=== PATIENT | female | born 1990 | race Caucasian/White ===

== ENCOUNTER 2017-03-10 13:24 | Emergency (ER) | payer OTHER ==
[2017-03-10 13:38] VITALS: BP 121/80; PULSE 108; RESP 16; O2SAT 99
--- NOTE | 2017-03-10 14:08 | ED PDOC ---
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 Past Medical History Reviewed: Historical Data, Nursing Documentation, Vital Signs Vital Signs: Last Vital Signs Temp 98.0 F 03/10/17 13:35 Pulse 108 H 03/10/17 13:35 Resp 16 03/10/17 13:35 BP 121/80 03/10/17 13:35 Pulse Ox 99 03/10/17 14:08 - Medical History Other PMH: ITP childhood - Surgical History Surgical History: No Surg Hx - Family History Family History: States: No Known Family Hx - Living Arrangements Living Arrangements: With Family - Social History Current smoker - smoking cessation education provided: No Alcohol: None Drugs: Denies - Home Medications Home Medications: Ambulatory Orders Medication Instructions Recorded Guaifenesin/Pseudoephedrne HCl 1 tab PO DAILY PRN #30 ter 03/10/17 [Mucinex D 600 mg-60 mg] Promethazine HCl/Codeine 5 ml PO HS #80 ml 03/10/17 [Prometh-Codein 6.25-10 mg/5 ml] - Allergies Allergies/Adverse Reactions: Allergies Allergy/AdvReac Type Severity Reaction Status Date / Time aspirin Allergy ITCHING Verified 03/10/17 13:34 ibuprofen [From Advil] Allergy RASH Verified 03/10/17 13:34 Review of Systems ROS Statement: Except As Marked, All Systems Reviewed And Found Negative Constitutional: Positive for: Fever ENT: Positive for: Nose Congestion Respiratory: Positive for: Cough Physical Exam - Reviewed Nursing Documentation Reviewed: Yes Vital Signs Reviewed: Yes - Physical Exam Appears: Positive for: Well, Non-toxic, No Acute Distress Head Exam: Positive for: ATRAUMATIC, NORMAL INSPECTION, NORMOCEPHALIC Skin: Positive for: Normal Color, Warm, DRY Eye Exam: Positive for: EOMI, Normal appearance, PERRL ENT: Positive for: Normal ENT Inspection Neck: Positive for: Normal, Painless ROM Cardiovascular/Chest: Positive for: Regular Rate, Rhythm Respiratory: Positive for: CNT, Normal Breath Sounds Gastrointestinal/Abdominal: Positive for: Normal Exam, Bowel Sounds, Soft Back: Positive for: Normal Inspection Extremity: Positive for: Normal ROM Neurologic/Psych: Positive for: Alert, Oriented - ECG O2 Sat by Pulse Oximetry: 99 Medical Decision Making Medical Decision Making: CXR: NAd, as read by ANDREZ Disposition - Clinical Impression Clinical Impression: Upper respiratory infection - Patient ED Disposition Is Patient to be Admitted: No - Disposition Disposition: Routine/Home Disposition Time: 15:10 Condition: STABLE Prescriptions: Guaifenesin/Pseudoephedrne HCl [Mucinex D 600 mg-60 mg] 1 tab PO DAILY PRN #30 ter PRN Reason: congestion Promethazine HCl/Codeine [Prometh-Codein 6.25-10 mg/5 ml] 5 ml PO HS #80 ml Instructions: Upper Respiratory Infection (ED) Forms: [employer] (Hungarian)
--- NOTE | 2017-03-10 14:52 | RAD ---
HISTORY: fever cough x 5 days COMPARISON: No prior. TECHNIQUE: Chest PA and lateral FINDINGS: LUNGS: No active pulmonary disease. PLEURA: No significant pleural effusion identified. No pneumothorax apparent. CARDIOVASCULAR: Normal. OSSEOUS STRUCTURES: No significant abnormalities. VISUALIZED UPPER ABDOMEN: Normal. OTHER FINDINGS: None. IMPRESSION: No active disease. No preliminary report provided by emergency department personnel.
[2017-03-10 15:20] VITALS: TEMP 97.6
== END 2017-03-10 15:27 | disposition home or self-care (01) ==
LOC: H.ER 13:24
DX: J06.9 Acute upper respiratory infection, unspecified (principal)

== ENCOUNTER 2017-04-20 21:18 | Emergency (ER) | payer OTHER ==
[2017-04-20 21:39] VITALS: RESP 16; O2SAT 100
[2017-04-20] MEDS ORDERED: Lactated Ringer's 1,000 ML IV STA (22:03)
[2017-04-20] MEDS ORDERED: Dextrose 5%/Lactated Ringer's 1,000 ML IV SCH (22:15)
--- NOTE | 2017-04-20 22:27 | ED PDOC ---
HPI: CCC, URI, Sore Throat Time Seen by Provider: 04/20/17 21:46 Chief Complaint (Nursing): Flu-like Symptoms Chief Complaint (Provider): cough History Per: Patient History/Exam Limitations: no limitations Associated Symptoms: Fever, Chills, Sore Throat, Cough, Sputum, Sinus Drainage, Myalgias, Nasal Congestion, Nausea. denies: Neck Pain, Vomiting, Diarrhea Additional Complaint(s): Pt reports cough that initially start about a month ago. Seen in this ER and had CXR and discharged with URI diagnosis. Cough persisted with only brief episodes of relief. Worsened again 4 days ago and presented to [facility] and prescribed augmentin for possible throat infection. However not improving and presents here because of persistent symptoms. PMD [facility] Past Medical History Reviewed: Historical Data, Nursing Documentation, Vital Signs Vital Signs: Last Vital Signs Temp 97.9 F 04/21/17 02:19 Pulse 78 04/21/17 02:19 Resp 16 04/21/17 02:19 BP 128/78 04/21/17 02:19 Pulse Ox 100 04/21/17 02:19 - Medical History PMH: No Chronic Diseases - Surgical History Surgical History: No Surg Hx - Family History Family History: States: No Known Family Hx - Social History Current smoker - smoking cessation education provided: No - Home Medications Home Medications: Ambulatory Orders Medication Instructions Recorded Guaifenesin/Pseudoephedrne HCl 1 tab PO DAILY PRN #30 ter 03/10/17 [Mucinex D 600 mg-60 mg] Promethazine HCl/Codeine 5 ml PO HS #80 ml 03/10/17 [Prometh-Codein 6.25-10 mg/5 ml] Promethazine HCl/Codeine 10 ml PO Q6 PRN #120 ml 04/21/17 [Prometh-Codein 6.25-10 mg/5 ml] levoFLOXacin [Levaquin] 750 mg PO DAILY #5 tab 04/21/17 - Allergies Allergies/Adverse Reactions: Allergies Allergy/AdvReac Type Severity Reaction Status Date / Time aspirin Allergy ITCHING Verified 04/20/17 21:35 ibuprofen [From Advil] Allergy RASH Verified 04/20/17 21:35 Review of Systems ROS Statement: Except As Marked, All Systems Reviewed And Found Negative (and as per HPI) Constitutional: Positive for: Fever, Chills, Weakness, Malaise ENT: Positive for: Nose Discharge, Nose Congestion, Throat Pain Respiratory: Positive for: Cough, Sputum Neurological: Positive for: Headache. Negative for: Weakness, Numbness Physical Exam - Reviewed Nursing Documentation Reviewed: Yes Vital Signs Reviewed: Yes - Physical Exam Appears: Positive for: Non-toxic, No Acute Distress (but tired appearing) Head Exam: Positive for: ATRAUMATIC, NORMOCEPHALIC Skin: Positive for: Warm, Dry Eye Exam: Positive for: EOMI, PERRL ENT: Positive for: Pharynx Is (clear), Sinus Pain/Drainage, Nasal Congestion. Negative for: Pharyngeal Erythema, Tonsillar Exudate, Tonsillar Swelling Neck: Positive for: Painless ROM, Supple Cardiovascular/Chest: Positive for: Chest Non Tender, Tachycardia. Negative for : Murmur Respiratory: Positive for: Normal Breath Sounds. Negative for: Accessory Muscle Use, Rales, Wheezing, Respiratory Distress Gastrointestinal/Abdominal: Positive for: Bowel Sounds, Soft. Negative for: Tenderness, Mass, Distended, Guarding, Rebound Back: Positive for: Normal Inspection. Negative for: Vertebral Tenderness Extremity: Positive for: Normal ROM. Negative for: Deformity Lymphatic: Negative for: Adenopathy Neurologic/Psych: Positive for: Alert. Negative for: Motor/Sensory Deficits - Laboratory Results Result Diagrams: 04/20/17 22:45 04/20/17 22:45 Interpretation Of Abn Labs: Leukocytosis - ECG O2 Sat by Pulse Oximetry: 100 Pulse Ox Interpretation: Normal - Radiology X-Ray: Interpreted by Pa X-Ray Interpretation: Infiltrates - Progress Re-evaluation Time: 00:00 Condition: Improved (Pt feels better post IVF and tylenol. DW pt findings and stressed importance of follow up. Advised to RTER immediately for worsening symptoms or no improvement in 48 hours.) Disposition - Clinical Impression Clinical Impression: Pneumonia - Disposition Referrals: [facility] [Outside] [facility] [Outside] - 04/22/17 Disposition: Routine/Home Disposition Time: 00:00 Condition: IMPROVED Prescriptions: levoFLOXacin [Levaquin] 750 mg PO DAILY #5 tab Promethazine HCl/Codeine [Prometh-Codein 6.25-10 mg/5 ml] 10 ml PO Q6 PRN #120 ml PRN Reason: SEVERE COUGH ONLY Instructions: Pneumonia (ED) Forms: [facility] ED School/Work Excuse
[2017-04-20 22:50] LABS: VENOUS BLOOD GAS BASE EXCESS 0.6 mmol/L (0.0-2.0); VENOUS BLOOD GAS PCO2 52 mmHg (40-60); VENOUS BLOOD PH 7.33 (7.32-7.43)
[2017-04-20 22:54] LABS: BASO # 0.1 K/uL (0.0-0.2); BASO % 0.4 % (0.0-2.0); EOS # 0.3 K/uL (0.0-0.7); EOS % 1.6 % (0.0-4.0); HEMATOCRIT 40.3 % (34.0-47.0); LYMPH # 2.8 K/uL (1.0-4.3); MEAN CELL VOLUME 89.4 fl (81.0-99.0); MEAN CORPUSCULAR HEMOGLOBIN 29.6 pg (27.0-31.0); MEAN CORPUSCULAR HGB CONC 33.1 g/dL (33.0-37.0); MEAN PLATELET VOLUME 8.6 fl (7.2-11.7); MONO # 1.9 K/uL (0.0-0.8); MONO % 11.9 % (0.0-10.0); NEUT # 11.2 K/uL (1.8-7.0); NEUT % 69.1 % (50.0-75.0); RED CELL DISTRIBUTION WIDTH 12.6 % (11.5-14.5); WHITE BLOOD COUNT 16.3 K/uL (4.8-10.8)
[2017-04-20 23:04] LABS: ALKALINE PHOSPHATASE 102 U/L (38-126); ALT/SGPT 29 U/L (9-52); AST/SGOT 25 U/L (14-36); BILIRUBIN,TOTAL 0.4 mg/dl (0.2-1.3); BLOOD UREA NITROGEN 9 mg/dl (7-17); CALCIUM 9.2 mg/dL (8.4-10.2); CARBON DIOXIDE 25 mmol/L (22-30); CHLORIDE 103 mmol/L (98-107); GFR AFRICAN-AMERICAN > 60; GLUCOSE,RANDOM 111 mg/dL (65-105); POTASSIUM 4.3 MMOL/L (3.6-5.0); SODIUM 139 mmol/l (132-148); TOTAL PROTEIN 8.4 G/DL (6.3-8.2)
--- NOTE | 2017-04-21 00:07 | ED PDOC ---
- Laboratory Results Result Diagrams: 04/20/17 22:45 04/20/17 22:45 - ECG O2 Sat by Pulse Oximetry: 100 Medical Decision Making Medical Decision Makin Patient signed out to me from Tasha Macias MD pending re-evaluation. Scribe Attestation: Documented by Naomi Pelayo acting as a scribe for Jennyfer Hayes MD. Scribe Attestation: All medical record entries made by the Scribe were at my direction and personally dictated by me. I have reviewed the chart and agree that the record accurately reflects my personal performance of the history, physical exam, medical decision making, and the department course for this patient. I have also personally directed, reviewed, and agree with the discharge instructions and disposition. Disposition - Disposition Forms: [employer] (Telugu)
[2017-04-21] MEDS ORDERED: levoFLOXacin 750 mg in D5W 150 ML BAG IVPB STA (00:15)
[2017-04-21] MEDS ORDERED: levoFLOXacin 750 mg in D5W 750 MG/150 ML BAG IVPB ONE (00:24)
[2017-04-21 02:20] VITALS: BP 128/78; PULSE 78; TEMP 97.9
--- NOTE | 2017-04-21 08:04 | RAD ---
HISTORY: Cough, fever. COMPARISON: 03/10/2017. TECHNIQUE: Chest PA and lateral FINDINGS: LUNGS: Right upper lobe infiltrate likely acute pneumonia, finding not seen previously. Left lower lobe infiltrate finding better appreciated on the lateral view. PLEURA: No significant pleural effusion identified. No pneumothorax apparent. CARDIOVASCULAR: Normal. OSSEOUS STRUCTURES: No significant abnormalities. VISUALIZED UPPER ABDOMEN: Normal. OTHER FINDINGS: None. IMPRESSION: Right upper lobe infiltrate/ pneumonia. This represents a new finding compared to the previous study. Left lower lobe infiltrate/pneumonia. A new finding compared to the prior study. Per institutional protocol findings have been routed to the PA folder for review No preliminary report provided by emergency department personnel.
== END 2017-04-21 02:26 | disposition home or self-care (01) ==
LOC: H.ER 21:18
DX: J18.9 Pneumonia, unspecified organism (principal)
CPT/HCPCS: 71020; 80053; 81025; 82803; 85025; 86308; 87040; 87070; 87430; 87804; 99282; J7120

== ENCOUNTER 2017-08-19 13:33 | Emergency (ER) | payer OTHER ==
[2017-08-19 14:12] VITALS: RESP 18; TEMP 99
[2017-08-19] MEDS ORDERED: Sodium Chloride 0.9% 1,000 ML IV STA (16:03)
--- NOTE | 2017-08-19 16:21 | RAD ---
HISTORY: Cough COMPARISON: 04/21/2017 TECHNIQUE: Chest PA and lateral FINDINGS: LUNGS: No active pulmonary disease. PLEURA: No significant pleural effusion identified. No pneumothorax apparent. CARDIOVASCULAR: Normal. OSSEOUS STRUCTURES: No significant abnormalities. VISUALIZED UPPER ABDOMEN: Normal. OTHER FINDINGS: None. IMPRESSION: No active disease. No significant interval change compared to the prior examination(s).
[2017-08-19 16:39] LABS: BASO # 0.1 K/uL (0.0-0.2); BASO % 0.6 % (0.0-2.0); EOS # 0.2 K/uL (0.0-0.7); EOS % 2.6 % (0.0-4.0); HEMOGLOBIN 13.9 g/dL (12.0-16.0); LYMPH # 1.7 K/uL (1.0-4.3); LYMPH % 19.5 % (20.0-40.0); MEAN CELL VOLUME 89.2 fl (81.0-99.0); MEAN CORPUSCULAR HEMOGLOBIN 29.8 pg (27.0-31.0); MEAN CORPUSCULAR HGB CONC 33.5 g/dL (33.0-37.0); MEAN PLATELET VOLUME 8.7 fl (7.2-11.7); MONO # 1.3 K/uL (0.0-0.8); MONO % 15.3 % (0.0-10.0); NEUT # 5.4 K/uL (1.8-7.0); RBC 4.65 Mil/uL (3.80-5.20); RED CELL DISTRIBUTION WIDTH 13.2 % (11.5-14.5); WHITE BLOOD COUNT 8.8 K/uL (4.8-10.8)
[2017-08-19 18:24] LABS: ALBUMIN 4.4 g/dL (3.5-5.0); ALT/SGPT 27 U/L (9-52); AST/SGOT 28 U/L (14-36); BLOOD UREA NITROGEN 10 mg/dl (7-17); CALCIUM 9.3 mg/dL (8.4-10.2); GFR AFRICAN-AMERICAN > 60; GFR NON-AFRICAN AMERICAN > 60
--- NOTE | 2017-08-19 18:51 | ED PDOC ---
HPI: General Adult Time Seen by Provider: 08/19/17 16:01 Chief Complaint (Nursing): Flu-like Symptoms Chief Complaint (Provider): cough malaise History Per: Patient History/Exam Limitations: no limitations Onset/Duration Of Symptoms: Days (4), Gradual Current Symptoms Are (Timing): Still Present Additional Complaint(s): 26yo female c/o flu like symptoms of cough , malaise, fatigue, sore throat. Denies syncope, rash, vomiting or diarrhea. Was told she had pneumonia in the fall 2016, cough persisted for several months, improved now has returned. She denies smoking or weight loss or hemoptysis. Past Medical History Reviewed: Historical Data, Nursing Documentation, Vital Signs Vital Signs: Last Vital Signs Temp 99 F 08/19/17 14:09 Pulse 100 H 08/19/17 14:09 Resp 18 08/19/17 14:09 BP 119/85 08/19/17 14:09 Pulse Ox 98 08/19/17 14:09 - Medical History PMH: Pneumonia - Surgical History Surgical History: No Surg Hx - Social History Current smoker - smoking cessation education provided: No - Home Medications Home Medications: Ambulatory Orders Medication Instructions Recorded Guaifenesin/Pseudoephedrne HCl 1 tab PO DAILY PRN #30 ter 03/10/17 [Mucinex D 600 mg-60 mg] Promethazine HCl/Codeine 5 ml PO HS #80 ml 03/10/17 [Prometh-Codein 6.25-10 mg/5 ml] Promethazine HCl/Codeine 10 ml PO Q6 PRN #120 ml 04/21/17 [Prometh-Codein 6.25-10 mg/5 ml] levoFLOXacin [Levaquin] 750 mg PO DAILY #5 tab 04/21/17 Albuterol HFA [Ventolin HFA 90 1 - 2 puff IH Q4 PRN #1 inhaler 08/19/17 mcg/actuation (8 g)] Azithromycin [Zithromax] 250 mg PO DAILY #6 tab 08/19/17 - Allergies Allergies/Adverse Reactions: Allergies Allergy/AdvReac Type Severity Reaction Status Date / Time aspirin Allergy ITCHING Verified 08/19/17 14:09 ibuprofen [From Advil] Allergy RASH Verified 08/19/17 14:09 Review of Systems Constitutional: Positive for: Chills, Weakness, Malaise ENT: Positive for: Throat Pain Cardiovascular: Negative for: Chest Pain, Palpitations Respiratory: Positive for: Cough, Sputum. Negative for: Shortness of Breath Gastrointestinal: Negative for: Nausea, Abdominal Pain Genitourinary Female: Negative for: Dysuria, Frequency Musculoskeletal: Negative for: Neck Pain, Shoulder Pain Skin: Negative for: Rash, Lesions Neurological: Negative for: Weakness, Numbness Psych: Negative for: Anxiety Physical Exam - Reviewed Nursing Documentation Reviewed: Yes Vital Signs Reviewed: Yes - Physical Exam Appears: Positive for: Well, Non-toxic, No Acute Distress Head Exam: Positive for: ATRAUMATIC, NORMAL INSPECTION, NORMOCEPHALIC Skin: Positive for: Normal Color, Warm, DRY Eye Exam: Positive for: EOMI, Normal appearance, PERRL ENT: Positive for: Normal ENT Inspection Neck: Positive for: Normal, Painless ROM Cardiovascular/Chest: Positive for: Regular Rate, Rhythm Respiratory: Positive for: Normal Breath Sounds, Other (+cough). Negative for: Decreased Breath Sounds, Rhonchi, Wheezing, Respiratory Distress Gastrointestinal/Abdominal: Positive for: Normal Exam, Bowel Sounds, Soft Back: Positive for: Normal Inspection Extremity: Positive for: Normal ROM Neurologic/Psych: Positive for: Alert, Oriented - Laboratory Results Result Diagrams: 08/19/17 16:35 08/19/17 17:35 - ECG O2 Sat by Pulse Oximetry: 98 Pulse Ox Interpretation: Normal - Radiology X-Ray: Read By Radiologist X-Ray Interpretation: No Acute Disease Medical Decision Making Medical Decision Making: labs reviewed and unremarkable Flu neg Rx azithro, albuterol, rec tylenol OTC, followup pulmonary given persistent now chronic intermittent cough. Disposition - Clinical Impression Clinical Impression: Influenza-like symptoms - Patient ED Disposition Is Patient to be Admitted: No Counseled Patient/Family Regarding: Studies Performed, Diagnosis, Need For Followup, Rx Given - Disposition Referrals: [facility] [Outside] Disposition: Routine/Home Disposition Time: 18:01 Condition: STABLE Additional Instructions: Followup with your doctor for further testing into your symptoms. Take medications as directed. Prescriptions: Albuterol HFA [Ventolin HFA 90 mcg/actuation (8 g)] 1 - 2 puff IH Q4 PRN #1 inhaler PRN Reason: Shortness Of Breath Azithromycin [Zithromax] 250 mg PO DAILY #6 tab Instructions: Chronic Cough (ED), Weakness (ED) Forms: [employer] (Occitan)
[2017-08-19 18:55] VITALS: BP 115/68; PULSE 78; O2SAT 99
== END 2017-08-19 18:55 | disposition home or self-care (01) ==
LOC: H.ER 13:33
DX: R05 Cough (principal); J02.9 Acute pharyngitis, unspecified; M62.81 Muscle weakness (generalized)
CPT/HCPCS: 71046; 80053; 81025; 84484; 85025; 87804; 96360; 99283; J7040

== ENCOUNTER 2017-10-31 16:00 | Emergency (ER) | payer OTHER ==
[2017-10-31] MEDS ORDERED: Sodium Chloride 0.9% 1,000 ML IV STA ×2 (16:56→18:38)
--- NOTE | 2017-10-31 17:19 | ED PDOC ---
History of Present Illness History of Present Illness: Chino Osullivan is a 26 year old female with a past medical history of pneumonia, who was brought to the ER by EMS for evaluation of fever preceded by runny nose and sinus pressure, onset a couple days ago. She reports having mild cough and severe body aches, which prompted her Ed visit today. Patient states that she Tylenol at noon today and Claritin this morning. She denies any nausea , vomiting, diarrhea, or urinary symptoms. PMD: [facility] HPI: Influenza Time Seen by Provider: 10/31/17 16:50 Chief Complaint: Flu-like Symptoms Chief Complaint (Provider): Flu-like Symptoms History Per: Patient Exam Limitations: no limitations Onset/Duration Of Symptoms: Days Symptoms include: fever, bodyaches, cough. denies: vomiting, diarrhea Past Medical History Reviewed: Historical Data, Nursing Documentation, Vital Signs Vital Signs: Last Vital Signs Temp 101.0 F H 10/31/17 17:12 Pulse 134 H 10/31/17 16:10 Resp 16 10/31/17 16:10 BP 128/76 10/31/17 16:10 Pulse Ox 100 10/31/17 16:10 - Medical History PMH: Pneumonia - Surgical History Surgical History: No Surg Hx - Family History Family History: States: Unknown Family Hx - Home Medications Home Medications: Ambulatory Orders Medication Instructions Recorded Guaifenesin/Pseudoephedrne HCl 1 tab PO DAILY PRN #30 ter 03/10/17 [Mucinex D 600 mg-60 mg] Promethazine HCl/Codeine 5 ml PO HS #80 ml 03/10/17 [Prometh-Codein 6.25-10 mg/5 ml] Promethazine HCl/Codeine 10 ml PO Q6 PRN #120 ml 04/21/17 [Prometh-Codein 6.25-10 mg/5 ml] levoFLOXacin [Levaquin] 750 mg PO DAILY #5 tab 04/21/17 Albuterol HFA [Ventolin HFA 90 1 - 2 puff IH Q4 PRN #1 inhaler 08/19/17 mcg/actuation (8 g)] Azithromycin [Zithromax] 250 mg PO DAILY #6 tab 08/19/17 - Allergies Allergies/Adverse Reactions: Allergies Allergy/AdvReac Type Severity Reaction Status Date / Time aspirin Allergy ITCHING Verified 08/19/17 14:09 ibuprofen [From Advil] Allergy RASH Verified 08/19/17 14:09 Review of Systems ROS Statement: Except As Marked, All Systems Reviewed And Found Negative Constitutional: Positive for: Fever ENT: Positive for: Other (sinus pressure) Respiratory: Positive for: Cough Gastrointestinal: Negative for: Nausea, Vomiting, Diarrhea Genitourinary Female: Negative for: Other (urinary symptoms) Physical Exam - Reviewed Nursing Documentation Reviewed: Yes Vital Signs Reviewed: Yes - Physical Exam Appears: Positive for: Well, Non-toxic, No Acute Distress Head Exam: Positive for: ATRAUMATIC, NORMAL INSPECTION, NORMOCEPHALIC Skin: Positive for: Normal Color, Warm, Dry Eye Exam: Positive for: Normal appearance ENT: Positive for: Normal ENT Inspection Neck: Positive for: Normal Cardiovascular/Chest: Positive for: Regular Rate, Rhythm. Negative for: Murmur Respiratory: Positive for: Normal Breath Sounds Gastrointestinal/Abdominal: Positive for: Normal Exam. Negative for: Bowel Sounds, Soft, Tenderness Extremity: Positive for: Normal ROM. Negative for: Deformity, Swelling Neurologic/Psych: Positive for: Alert, Oriented. Negative for: Motor/Sensory Deficits Medical Decision Making Medical Decision Making: Time: 16:56 Plan: --Venous Blood Gas Shock Panel --CMP --CBC --Chest X-Ray --IV Fluids --Tylenol 975 mg PO --Influenza A B Scribe Attestation: Documented by Veronica Dunne, acting as a scribe for Casi La PA-C Provider Scribe Attestation: All medical record entries made by the Scribe were at my direction and personally dictated by me. I have reviewed the chart and agree that the record accurately reflects my personal performance of the history, physical exam, medical decision making, and the department course for this patient. I have also personally directed, reviewed, and agree with the discharge instructions and disposition. - Laboratory Results Result Diagrams: 10/31/17 17:43 10/31/17 17:43 - ECG O2 Sat by Pulse Oximetry: 100 Disposition - Clinical Impression Clinical Impression: Influenza-like symptoms - Patient ED Disposition Is Patient to be Admitted: No Counseled Patient/Family Regarding: Diagnosis, Need For Followup - Disposition Disposition: Routine/Home Disposition Time: 20:23 Condition: STABLE Additional Instructions: Lots of fluids. Follow-up with PMD. Tylenol for fever. Blood cultures pending Instructions: Viral Syndrome (DC) Forms: [employer] (Lithuanian)
[2017-10-31 17:49] LABS: BASO % 0.3 % (0.0-2.0); EOS % 0.1 % (0.0-4.0); HEMOGLOBIN 13.9 g/dL (12.0-16.0); LYMPH # 1.6 K/uL (1.0-4.3); LYMPH % 8.9 % (20.0-40.0); MEAN CELL VOLUME 88.8 fl (81.0-99.0); MEAN CORPUSCULAR HEMOGLOBIN 30.2 pg (27.0-31.0); MEAN CORPUSCULAR HGB CONC 34.1 g/dL (33.0-37.0); MEAN PLATELET VOLUME 9.2 fl (7.2-11.7); MONO # 1.5 K/uL (0.0-0.8); MONO % 8.5 % (0.0-10.0); NEUT # 14.8 K/uL (1.8-7.0); NEUT % 82.2 % (50.0-75.0); PLATELET COUNT 278 K/uL (130-400); RBC 4.58 Mil/uL (3.80-5.20); WHITE BLOOD COUNT 18.1 K/uL (4.8-10.8)
--- NOTE | 2017-10-31 18:03 | RAD ---
HISTORY: Cough, fever COMPARISON: 08/19/2017. TECHNIQUE: Chest PA and lateral FINDINGS: LUNGS: No active pulmonary disease. PLEURA: No significant pleural effusion identified. No pneumothorax apparent. CARDIOVASCULAR: Normal. OSSEOUS STRUCTURES: No significant abnormalities. VISUALIZED UPPER ABDOMEN: Normal. OTHER FINDINGS: None. IMPRESSION: No active disease. No significant interval change compared to the prior examination(s).
[2017-10-31 18:06] LABS: ALBUMIN 4.2 g/dL (3.5-5.0); ALT/SGPT 38 U/L (9-52); AST/SGOT 23 U/L (14-36); BLOOD UREA NITROGEN 9 mg/dl (7-17); CALCIUM 9.5 mg/dL (8.4-10.2); GFR AFRICAN-AMERICAN > 60; GFR NON-AFRICAN AMERICAN > 60
[2017-10-31 18:09] VITALS: RESP 18
[2017-10-31 18:22] LABS: VENOUS BLOOD GAS PCO2 29 mmHg (40-60); VENOUS BLOOD GAS PO2 36 mm/Hg (30-55); VENOUS BLOOD PH 7.51 (7.32-7.43)
[2017-10-31 18:27] LABS: SPERM URINE RARE /hpf; SQUAMOUS EPITHIAL 3 /hpf (0-5); URINE BACTERIA OCC (<OCC); URINE BILIRUBIN NEGATIVE (NEGATIVE); URINE BLOOD SMALL (NEGATIVE); URINE CLARITY SLIGHTY-CLOUDY (Clear); URINE COLOR YELLOW (YELLOW); URINE GLUCOSE (UA) NEG (Normal); URINE LEUKOCYTE ESTERASE NEG Leu/uL (Negative); URINE PROTEIN NEGATIVE (NEGATIVE); URINE UROBILINOGEN 0.2-1.0 mg/dL (0.2-1.0)
[2017-10-31 18:58] LABS: BANDS 2 % (0-2); HYPOCHROMIC SLIGHT; LYMPHOCYTE 10 % (20-50); MONOCYTE 6 % (0-10); NEUTROPHIL 82 % (42-75); PLATELET ESTIMATE NORMAL (NORMAL); TOTAL CELLS COUNTED 100
[2017-10-31 21:21] VITALS: BP 106/57; PULSE 83; TEMP 98.4; O2SAT 99
== END 2017-10-31 21:29 | disposition home or self-care (01) ==
LOC: H.ER 16:00
DX: J11.1 Influenza due to unidentified influenza virus with other respiratory manifestations (principal); Z88.6 Allergy status to analgesic agent
CPT/HCPCS: 71046; 80053; 81003; 81025; 82803; 85025; 87040; 87086; 87804; 96360; 96361; 99283; J7040

== ENCOUNTER 2018-08-11 18:03 | Emergency (ER) | payer SELFPAY ==
[2018-08-11 18:35] VITALS: BP 124/76; PULSE 73; RESP 16; TEMP 98.2
[2018-08-11 18:37] VITALS: O2SAT 98
[2018-08-11] MEDS ORDERED: DiphenhydrAMINE 50 mg/ml Inj IVP STA (18:50)
[2018-08-11] MEDS ORDERED: DiphenhydrAMINE 50 mg/ml Inj ONE (18:59)
[2018-08-11] MEDS: Sodium Chloride 0.9% 1,000 ML IV SCH ×2 (19:03→20:13)
--- NOTE | 2018-08-11 19:03 | ED PDOC ---
HPI: Neurologic - General Time Seen by Provider: 08/11/18 18:41 Chief Complaint (Nursing): Headache Chief Complaint (Provider): headache, dizziness and migraines Source: patient Exam Limitations: no limitations - History of Present Illness Timing/Duration: waxing and waning Severity: none Allergies/Adverse Reactions: Allergies aspirin Allergy (Verified 08/11/18 18:31) ITCHING ibuprofen [From Advil] Allergy (Verified 08/11/18 18:31) RASH Home Medications: Ambulatory Orders Guaifenesin/Pseudoephedrne HCl [Mucinex D 600 mg-60 mg] 1 tab PO DAILY PRN #30 ter 03/10/17 Promethazine HCl/Codeine [Prometh-Codein 6.25-10 mg/5 ml] 5 ml PO HS #80 ml 03/10/17 Promethazine HCl/Codeine [Prometh-Codein 6.25-10 mg/5 ml] 10 ml PO Q6 PRN #120 ml 04/21/17 levoFLOXacin [Levaquin] 750 mg PO DAILY #5 tab 04/21/17 RX: Albuterol HFA [Ventolin HFA 90 mcg/actuation (8 g)] 1 - 2 puff IH Q4 PRN #1 inhaler 08/19/17 RX: Azithromycin [Zithromax] 250 mg PO DAILY #6 tab 08/19/17 Sumatriptan Succinate [Imitrex] 1 tab PO PRN PRN #12 tablet 08/11/18 Additional Complaint(s): 27 y/o female presents to the ED for an evaluation of headache, dizziness and migraines onset Friday evening. The headache is intermittent on the right side associated with light sensitivity and fever. Currently, patient states she is unable to chew food on the right side. Otherwise, she denies ear pain, nausea, diarrhea or cough. PMD: no family provider Past Medical History Reviewed: Historical Data, Nursing Documentation, Vital Signs Vital Signs: Last Vital Signs Temp 98.2 F 08/11/18 18:31 Pulse 73 08/11/18 18:31 Resp 16 08/11/18 18:31 BP 124/76 08/11/18 18:31 Pulse Ox 98 08/11/18 18:31 - Medical History PMH: Pneumonia - Family History Family History: States: Unknown Family Hx - Home Medications Home Medications: Ambulatory Orders Medication Instructions Recorded Guaifenesin/Pseudoephedrne HCl 1 tab PO DAILY PRN #30 ter 03/10/17 [Mucinex D 600 mg-60 mg] Promethazine HCl/Codeine 5 ml PO HS #80 ml 03/10/17 [Prometh-Codein 6.25-10 mg/5 ml] Promethazine HCl/Codeine 10 ml PO Q6 PRN #120 ml 04/21/17 [Prometh-Codein 6.25-10 mg/5 ml] levoFLOXacin [Levaquin] 750 mg PO DAILY #5 tab 04/21/17 RX: Albuterol HFA [Ventolin HFA 90 1 - 2 puff IH Q4 PRN #1 inhaler 08/19/17 mcg/actuation (8 g)] RX: Azithromycin [Zithromax] 250 mg PO DAILY #6 tab 08/19/17 Sumatriptan Succinate [Imitrex] 1 tab PO PRN PRN #12 tablet 08/11/18 - Allergies Allergies/Adverse Reactions: Allergies Allergy/AdvReac Type Severity Reaction Status Date / Time aspirin Allergy ITCHING Verified 08/11/18 18:31 ibuprofen [From Advil] Allergy RASH Verified 08/11/18 18:31 Review of Systems ROS Statement: Except As Marked, All Systems Reviewed And Found Negative Constitutional: Positive for: Fever. Negative for: Chills ENT: Negative for: Ear Pain Respiratory: Negative for: Cough Gastrointestinal: Negative for: Nausea, Vomiting Neurological: Positive for: Headache, Dizziness, Other (migraines). Negative for: Weakness, Numbness Physical Exam - Reviewed Nursing Documentation Reviewed: Yes Vital Signs Reviewed: Yes - Physical Exam Appears: Positive for: Non-toxic, No Acute Distress Head Exam: Positive for: ATRAUMATIC, NORMAL INSPECTION, NORMOCEPHALIC Skin: Positive for: Normal Color, Warm, Dry. Negative for: Rash Eye Exam: Positive for: EOMI, Normal appearance, PERRL ENT: Positive for: Other (right side tenderness to frontal and maxillary sinuses) Cardiovascular/Chest: Positive for: Regular Rate, Rhythm. Negative for: Murmur Respiratory: Positive for: Normal Breath Sounds. Negative for: Decreased Breath Sounds, Wheezing, Respiratory Distress Neurologic/Psych: Positive for: Alert, Oriented (x3). Negative for: Mot or/Sensory Deficits - ECG O2 Sat by Pulse Oximetry: 98 (RA) Pulse Ox Interpretation: Normal Medical Decision Making Medical Decision Making: Time: 1849 Plan: Benadryl 50mg Normal saline 1000 mls/hr Acetaminophen 650mg Zofran 4mg Reevaluation Scribe Attestation: Documented by Kathy Duncan, acting as a scribe for Khang Hernandez PA-C. Provider Scribe Attestation: All medical record entries made by the Scribe were at my direction and personally dictated by me. I have reviewed the chart and agree that the record accurately reflects my personal performance of the history, physical exam, m edical decision making, and the department course for this patient. I have also personally directed, reviewed, and agree with the discharge instructions and disposition. Disposition - Clinical Impression Clinical Impression: Migraine Counseled Patient/Family Regarding: Studies Performed - Disposition Disposition: Routine/Home Disposition Time: 21:39 Condition: IMPROVED Prescriptions: Sumatriptan Succinate [Imitrex] 1 tab PO PRN PRN #12 tablet PRN Reason: Headache Instructions: Headache, Adult (DC), Migraine Headaches in Adults Forms: [employer] (Luxembourgish), [facility] ED School/Work Excuse
== END 2018-08-11 20:38 | disposition home or self-care (01) ==
LOC: H.ER 18:03
DX: G43.909 Migraine, unspecified, not intractable, without status migrainosus (principal); Z88.6 Allergy status to analgesic agent
CPT/HCPCS: 81025; 96361; 96374; 96375; 99285; J1200; J2405; J7030